=== PATIENT | male | born 1950 | race Caucasian/White ===

== ENCOUNTER 2022-06-05 09:46 | Inpatient (IN) | payer OTHER, MEDICARE ==
[~2022-06-05] VITALS: Ht 177.8 cm; Wt 82.1 kg
[~2022-06-05 09:46] MED LIST: ASA81 PO; CALC200T47 PO; COR6.25 PO; FOLI-43 PO; HYDR200T80 PO; LEVE1000 PO; METH2.5T PO; MULT-1117 PO; NORT10CA5 PO; PANT20TA2 PO; ROSU20TA2 PO; SPIR25TA6 PO; TAMS-11 PO; VALS80TA2 PO
[2022-06-05 09:49] VITALS: BP_SYST 113
[2022-06-05 10:36] LABS: BASOPHILS # (AUTO) 0.1 K/uL (0.0-0.2); BASOPHILS % (AUTO) 0.9 % (0.0-2.0); EOSINOPHILS # (AUTO) 0.1 K/uL (0.0-0.4); EOSINOPHILS % (AUTO) 1.1 % (0.0-4.0); HEMATOCRIT 35.6 % (36-54); HEMOGLOBIN 12.6 g/dL (14.0-18.0); LYMPHOCYTES # (AUTO) 0.9 K/uL (1.0-5.5); LYMPHOCYTES % (AUTO) 11.9 % (20.5-51.5); MEAN CORPUSCULAR HEMOGLOBIN 33 pg (27-31); MEAN CORPUSCULAR HGB CONC 35 % (32-36); MEAN CORPUSCULAR VOLUME 93 fL (79.0-98.0); MONOCYTES # (AUTO) 0.5 K/uL (0.0-1.0); MONOCYTES % (AUTO) 6.6 % (1.7-9.3); NEUTROPHILS # (AUTO) 6.2 K/uL (1.8-7.7); NEUTROPHILS % (AUTO) 79.5 % (40.0-70.0); PLATELET COUNT (AUTO) 167 K/uL (130-430); RED BLOOD CELL COUNT(AUTO) 3.81 MIL/uL (4.2-6.2); RED CELL DISTRIBUTION WIDTH 16.7 % (9.0-15.0); WHITE BLOOD COUNT (AUTO) 7.8 K/uL (4.8-10.8)
[2022-06-05 10:44] LABS: ANION GAP 9 (5-15); CALCIUM 8.5 mg/dL (8.4-11.0); CHLORIDE 104 mmol/L (98-107); CREATININE 1.64 mg/dL (0.55-1.30); GLUCOSE 114 mg/dL (70-99); POTASSIUM 4.6 mmol/L (3.5-5.1); SODIUM SERUM 138 mmol/L (136-145); UREA NITROGEN, BLOOD 30 mg/dL (8-21)
[2022-06-05 10:48] LABS: ALANINE AMINOTRANSFERASE 21 U/L (12-78); ALBUMIN 3.6 g/dL (3.4-4.8); ASPARTATE AMINOTRANSFERASE 33 U/L (10-37)
[2022-06-05] MEDS ORDERED: levETIRAcetam 1,500 MG in NS 85 ML IV ONE (11:30)
[2022-06-05] MEDS ORDERED: LORazepam 2 MG/ML VIAL IVP ONE (11:30)
[2022-06-05 11:45] LABS: BILIRUBIN,URINE NEGATIVE (NEGATIVE); CLARITY/URINE CLEAR (CLEAR); COLOR,URINE YELLOW (YELLOW); GLUCOSE,URINE NEGATIVE (NEGATIVE); KETONES,URINE NEGATIVE (NEGATIVE); LEUKOCYTE ESTERASE ,URINE NEGATIVE (NEGATIVE); NITRITE, URINE NEGATIVE (NEGATIVE); PROTEIN URINE NEGATIVE (NEGATIVE); UROBILINOGEN,URINE 0.2 (0.2-1.0)
[2022-06-05 11:56] LABS: BLOOD, URINE TRACE (NEGATIVE)
[2022-06-05] MEDS ORDERED: D5/0.45 NS 1,000 ML IV ONE (15:15)
[2022-06-05 17:00] VITALS: BP_SYST 103
[2022-06-05] MEDS ORDERED: ONDANSETRON HCL 4 MG/2 ML VIAL IVP PRN (19:00)
[2022-06-05] MEDS ORDERED: LORazepam 2 MG/ML VIAL IVP PRN ×2 (19:00)
[2022-06-05] MEDS ORDERED: HYDROcodone/ACETAMIN 5-325 MG TAB (NORCO/ VICODIN) PO PRN (19:00)
[2022-06-05] MEDS ORDERED: ACETAMINOPHEN 325 MG TABLET PO PRN (19:00)
[2022-06-05] MEDS ORDERED: HYDROcodone/ACETAMIN 10-325 MG TAB PO PRN (19:00)
[2022-06-05] MEDS ORDERED: NALOXONE HCL 0.4 MG/ML AMP (NARCAN) IVP PRN ×2 (19:00)
[2022-06-05 21:00] VITALS: BP_SYST 138
[2022-06-05] MEDS: ATORVASTATIN 20 MG TABLET PO SCH (21:59)
[2022-06-05] MEDS: levETIRAcetam 500 MG TABLET PO SCH (21:59)
[2022-06-06 04:21] VITALS: BP_SYST 114
[2022-06-06] MEDS: HYDROXYCHLOROQUINE SULFATE 200 MG TABLET PO SCH (09:00)
[2022-06-06] MEDS ORDERED: SPIRONOLACTONE 25 MG TABLET (ALDACTONE) PO SCH (09:00)
[2022-06-06] MEDS ORDERED: LOSARTAN POTASSIUM 50 MG TABLET (COZAAR) PO SCH (09:00)
[2022-06-06 10:27] LABS: ANION GAP 12 (5-15); CALCIUM 8.6 mg/dL (8.4-11.0); CHLORIDE 101 mmol/L (98-107); CREATININE 1.39 mg/dL (0.55-1.30); GLUCOSE 122 mg/dL (70-99); POTASSIUM 3.5 mmol/L (3.5-5.1); SODIUM SERUM 135 mmol/L (136-145); UREA NITROGEN, BLOOD 26 mg/dL (8-21)
[2022-06-06] MEDS: levETIRAcetam 500 MG TABLET PO SCH ×2 (11:46→21:10)
[2022-06-06] MEDS: TAMSULOSIN HCL 0.4 MG CAP PO SCH (11:46)
[2022-06-06] MEDS: NORTRIPTYLINE HCL 10 MG CAPSULE PO SCH (11:47)
[2022-06-06] MEDS: MULTIVITAMINS TAB 1 TABLET PO SCH (11:47)
[2022-06-06] MEDS: FOLIC ACID 1 MG TABLET PO SCH (11:47)
[2022-06-06] MEDS: ASPIRIN 81 MG TAB.CHEW PO SCH (11:47)
[2022-06-06] MEDS: CALCIUM 500 MG/TAB PO SCH (11:48)
[2022-06-06] MEDS: CARVEDILOL 6.25 MG TABLET (COREG) PO SCH (11:49)
[2022-06-06 14:44] LABS: BASOPHILS % (AUTO) 0.5 % (0.0-2.0); HEMATOCRIT 33.4 % (36-54); LYMPHOCYTES # (AUTO) 1.3 K/uL (1.0-5.5); LYMPHOCYTES % (AUTO) 15.9 % (20.5-51.5); MEAN CORPUSCULAR HEMOGLOBIN 33 pg (27-31); MEAN CORPUSCULAR HGB CONC 36 % (32-36); MEAN CORPUSCULAR VOLUME 93 fL (79.0-98.0); MONOCYTES # (AUTO) 0.7 K/uL (0.0-1.0); MONOCYTES % (AUTO) 8.7 % (1.7-9.3); NEUTROPHILS # (AUTO) 6.1 K/uL (1.8-7.7); NEUTROPHILS % (AUTO) 74.9 % (40.0-70.0); PLATELET COUNT (AUTO) 142 K/uL (130-430); RED BLOOD CELL COUNT(AUTO) 3.61 MIL/uL (4.2-6.2); RED CELL DISTRIBUTION WIDTH 16.7 % (9.0-15.0); WHITE BLOOD COUNT (AUTO) 8.1 K/uL (4.8-10.8)
[2022-06-06] MEDS: NACL 0.9% 1,000 ML IV SCH ×2 (15:43→21:34)
[2022-06-06 16:00] VITALS: BP_SYST 112
[2022-06-06 20:00] VITALS: BP_SYST 103
[2022-06-06] MEDS: ATORVASTATIN 20 MG TABLET PO SCH (21:10)
[2022-06-07 00:13] VITALS: BP_SYST 110
[2022-06-07] MEDS: NACL 0.9% 1,000 ML IV SCH (07:48)
[2022-06-07 08:00] VITALS: BP_SYST 94
[2022-06-07] MEDS: CARVEDILOL 6.25 MG TABLET (COREG) PO SCH (09:00)
[2022-06-07 09:35] LABS: ANION GAP 10 (5-15); CALCIUM 8.3 mg/dL (8.4-11.0); CHLORIDE 107 mmol/L (98-107); CREATININE 1.35 mg/dL (0.55-1.30); GLUCOSE 115 mg/dL (70-99); PHOSPHORUS 2.8 mg/dL (2.7-4.5); POTASSIUM 3.8 mmol/L (3.5-5.1); SODIUM SERUM 140 mmol/L (136-145); UREA NITROGEN, BLOOD 21 mg/dL (8-21)
[2022-06-07] MEDS: ASPIRIN 81 MG TAB.CHEW PO SCH (09:43)
[2022-06-07] MEDS: NORTRIPTYLINE HCL 10 MG CAPSULE PO SCH (09:47)
[2022-06-07] MEDS: CALCIUM 500 MG/TAB PO SCH (09:48)
[2022-06-07] MEDS: MULTIVITAMINS TAB 1 TABLET PO SCH (09:49)
[2022-06-07] MEDS: levETIRAcetam 500 MG TABLET PO SCH (09:50)
[2022-06-07] MEDS: TAMSULOSIN HCL 0.4 MG CAP PO SCH (09:51)
[2022-06-07] MEDS: FOLIC ACID 1 MG TABLET PO SCH (09:53)
[2022-06-07] MEDS: HYDROXYCHLOROQUINE SULFATE 200 MG TABLET PO SCH (09:59)
[2022-06-07 12:28] LABS: BASOPHILS # (AUTO) 0.1 K/uL (0.0-0.2); BASOPHILS % (AUTO) 0.7 % (0.0-2.0); EOSINOPHILS # (AUTO) 0.1 K/uL (0.0-0.4); EOSINOPHILS % (AUTO) 1.8 % (0.0-4.0); HEMOGLOBIN 12.2 g/dL (14.0-18.0); LYMPHOCYTES # (AUTO) 1.5 K/uL (1.0-5.5); LYMPHOCYTES % (AUTO) 18.2 % (20.5-51.5); MEAN CORPUSCULAR HEMOGLOBIN 34 pg (27-31); MEAN CORPUSCULAR HGB CONC 36 % (32-36); MEAN CORPUSCULAR VOLUME 94 fL (79.0-98.0); MONOCYTES # (AUTO) 0.6 K/uL (0.0-1.0); MONOCYTES % (AUTO) 7.9 % (1.7-9.3); NEUTROPHILS # (AUTO) 5.9 K/uL (1.8-7.7); NEUTROPHILS % (AUTO) 71.4 % (40.0-70.0); PLATELET COUNT (AUTO) 146 K/uL (130-430); RED BLOOD CELL COUNT(AUTO) 3.63 MIL/uL (4.2-6.2); RED CELL DISTRIBUTION WIDTH 16.3 % (9.0-15.0); WHITE BLOOD COUNT (AUTO) 8.2 K/uL (4.8-10.8)
[2022-06-07 13:32] VITALS: BP_SYST 97
== END 2022-06-07 15:23 | disposition home or self-care (01) | DRG 100 ==
LOC: SED 09:46 → STU 15:09
PROVIDERS: ADMIT Preventive Medicine Preventive Medicine/Occupational Environmental Medicine; ATTEND Preventive Medicine Preventive Medicine/Occupational Environmental Medicine
DX: G40.909 Epilepsy, unspecified, not intractable, without status epilepticus (principal); N17.0 Acute kidney failure with tubular necrosis; K21.9 Gastro-esophageal reflux disease without esophagitis; I25.10 Atherosclerotic heart disease of native coronary artery without angina pectoris; N40.0 Benign prostatic hyperplasia without lower urinary tract symptoms; E78.5 Hyperlipidemia, unspecified; R13.10 Dysphagia, unspecified; R73.9 Hyperglycemia, unspecified; M06.9 Rheumatoid arthritis, unspecified; D64.9 Anemia, unspecified; Z20.822 Contact with and (suspected) exposure to COVID-19; I10 Essential (primary) hypertension; Z88.8 Allergy status to other drugs, medicaments and biological substances; Z79.899 Other long term (current) drug therapy; Z95.0 Presence of cardiac pacemaker; Z87.440 Personal history of urinary (tract) infections; Z86.73 Personal history of transient ischemic attack (TIA), and cerebral infarction without residual deficits
CPT/HCPCS: 36415; 70450-TC; 71045; 76376; 76770; 80048; 80053; 81003; 82140; 82542; 82550; 82962; 83605; 83735; 84100; 84484; 85025; 92610-GN; 93005; 96365; 96375; 99285; G0378; J1953